=== PATIENT | female | born 1975 | race Caucasian/White ===

== ENCOUNTER 2018-07-01 04:47 | Inpatient (IN) | payer BC ==
[2018-07-01] MEDS ORDERED: Ondansetron HCl/PF 4 MG/2 ML Vial ONE (05:07)
[2018-07-01] MEDS ORDERED: Lorazepam 2 MG/ML VIAL ONE ×3 (05:07→08:07)
[2018-07-01 05:15] LABS: #Lymphocytes 0.8 thou/uL (1.20-3.40); #Monocytes 0.7 thou/uL (0.11-0.59); #Neutrophils 15.2 thou/uL (1.40-6.50); %Eosinophils 0.1 % (0.0-10.0); %Lymphocytes 4.8 % (21.0-51.0); %Monocytes 4.4 % (0.0-10.0); %Neutrophils 90.7 % (42.0-75.0); Hemoglobin 14.1 g/dL (12.0-16.0); Mean Corpuscular HGB CONC 33.7 g/dL (32.0-36.0); Mean Corpuscular Hemoglobin 27.5 pg (27.0-31.0); Mean Corpuscular Volume 81.3 fL (78.0-98.0); Mean Platelet Volume 10.3 fL (7.4-10.4); Platelet Count 125 thou/uL (130-400); RBC Distribution Width 16.4 % (11.5-14.5); Red Blood Cell (RBC) Count 5.15 mill/uL (4.20-5.40); White Blood Cell (WBC) Count 16.8 thou/uL (4.8-10.8)
[2018-07-01 05:21] LABS: BHCG - Serum Negative (NEGATIVE); Pregs Control Background? CLEAR/WHITE (CLR/WHITE); Pregs Control Bar Appear? YES (CONTROL BAR)
[2018-07-01 05:29] LABS: ALT (SGPT) 301 U/L (8-55); AST (SGOT) 730 U/L (5-34); Albumin 4.4 g/dL (3.5-5.0); Alkaline Phosphatase 161 U/L (40-150); Anion Gap 35 mmol/L (10-20); BUN (Urea Nitrogen) 10 mg/dL (7.0-18.7); Bilirubin, Total 2.3 mg/dL (0.2-1.2); Calc. Creatinine Clearance 0 mL/min (70-130); Calcium 8.6 mg/dL (7.8-10.44); Carbon Dioxide 10 mmol/L (22-29); Chloride 76 mmol/L (98-107); Estimated GFR-MDRD 80; Globulin 3.5 g/dL (2.4-3.5); Glucose 153 mg/dL (70-105); Lipase 104 U/L (8-78); Protein, Total 7.9 g/dL (6.0-8.3)
[2018-07-01 05:31] LABS: Potassium 2.7 mmol/L (3.5-5.1); Sodium 118 mmol/L (136-145)
[2018-07-01 05:44] LABS: Base Excess-Venous -7.7 mmol/L (0 (+/- 2.5)); Bicarbonate (HCO3v) 14.3 mmol/L (1.0-85.0); CO2 Tension (PvCO2) 21.6 mmHg (41.0-51.0); Calcium, Ionized 0.86 mmol/L (1.12-1.32); Hemoglobin - Calc 15.1 g/dL (12.0-18.0); Potassium 2.9 mmol/L (3.4-4.7); T. Carbon Dioxide 14.9 mmol/L (1.0-85.0); pH (Venous) 7.427 (7.35-7.45); vO2 Saturation-calc 75.5 % (94-98)
[2018-07-01] MEDS ORDERED: Potassium Chloride 20 MEQ TAB ONE (05:44)
[2018-07-01 05:59] LABS: Acetaminophen Less than 6.0 mcg/mL (10.0-30.0); Alcohol 126 mg/dL (Less than 10); Salicylate Less than 8.0 mg/dL (15.0-30.0); Troponin I 0.014 ng/mL (< 0.028)
[2018-07-01 06:01] LABS: CKMB 34.5 ng/mL (0-6.6)
[2018-07-01] MEDS ORDERED: Lorazepam 2 MG/ML VIAL SLOW IVP PRN ×2 (06:54→08:05)
[2018-07-01] MEDS ORDERED: ZOSYN IVPB PRN (06:55)
[2018-07-01] MEDS ORDERED: Acetaminophen 325 MG TAB PO PRN (06:57)
[2018-07-01 07:33] LABS: Anion Gap 29 mmol/L (10-20); BUN (Urea Nitrogen) 9 mg/dL (7.0-18.7); Calc. Creatinine Clearance 0 mL/min (70-130); Calcium 7.9 mg/dL (7.8-10.44); Carbon Dioxide 11 mmol/L (22-29); Chloride 83 mmol/L (98-107); Estimated GFR-MDRD Greater than 90; Glucose 100 mg/dL (70-105); Potassium 3.3 mmol/L (3.5-5.1); Sodium 120 mmol/L (136-145)
--- NOTE | 2018-07-01 08:07 | ULT ---
SONOGRAM RIGHT UPPER QUADRANT: Date: 07/01/18 HISTORY: Right upper quadrant pain. FINDINGS: Gallbladder is surgically absent. Common duct is 0.7 cm. Liver unremarkable without focal mass or int rahepatic biliary dilatation. No free fluid. IMPRESSION: Status post cholecystectomy. No evidence of biliary obstruction or other acute abnormalities. POS: [facility]
[2018-07-01 08:20] LABS: Amphetamine Not Detected (NotDetected); Barbiturates Screen Not Detected (NotDetected); Benzodiazepine Screen Not Detected (NotDetected); Cocaine Metabolite Screen Not Detected (NotDetected); Medtox Control Line Valid? VALID (VALID); Medtox Reader # READER 4; Methadone Not Detected (NotDetected); Methamphetamine Not Detected (NotDetected); Opiate Screen Not Detected (NotDetected); Oxycodone Screen Not Detected (NotDetected); Phencyclidine (PCP) Not Detected (NotDetected); THC/Cannabinoid Screen Not Detected (NotDetected); Tricyclic Screen Not Detected (NotDetected)
[2018-07-01] MEDS ORDERED: Magnesium 2 GM/50 ML 2 GM in Premix Bag 1 BAG IVPB SCH (08:30)
--- NOTE | 2018-07-01 08:39 | RAD ---
PORTABLE CHEST 1 VIEW: Date: 07/01/18 Time: 0525 hours HISTORY: Nausea and vomiting. FINDINGS: The heart size is normal. The lungs are expanded without focal areas of consolidation, pneumothoraces , or pleural effusions. IMPRESSION: No radiographic evidence of acute cardiopulmonary process. POS: [facility]
[2018-07-01 08:52] LABS: PTT 25.6 SEC (22.9-36.1); Prothrombin Time 13.3 SEC (12.0-14.7)
[2018-07-01 10:44] LABS: Lactic Acid 4.3 mmol/L (0.5-2.2)
--- NOTE | 2018-07-01 13:16 | HP ---
CHIEF COMPLAINT: Vomiting. HISTORY OF PRESENT ILLNESS: The patient is a 43-year-old female with a long history of severe alcoho l addiction and abuse. The patient was last admitted here in 2013 with an episode of severe alcohol withdrawal with seizures. Patient had DTs and was given Ativan. At that time she subsequently becam e unresponsive and required intubation. She was able to be successfully extubated after a couple of days and did well subsequent. At that time, the patient also had a significant cardiomyopathy, initi ally with an EF of 10%-15%, which had improved to 40%-45% at the time of discharge. The patient had positive troponins at that time and had a negative stress test. At the time of that discharge, the p atient was to go to [place] to be with family in order to get away from her detrimental environment. She did that and apparently has been in and out of rehab several times, but continues to relapse wit h her alcoholism. She reports that she had been sober for about 4 months and has been taking Antabus e for several months as well. She subsequently started drinking again on about 4 days ago. Soon the reafter, she developed significant nausea, vomiting, and diarrhea. She continued to drink and deal w ith those symptoms for 3 days. Ultimately, she felt that the vomiting became so severe that she had to come to the emergency department. The patient does admit that she has not been eating or drinking during those 4 days of heavy drinking. She has been drinking liquor as that is generally her prefer red drink. She has fallen several times, but she denies having had any seizures. Currently, patient reports that she feels anxious and shaky and has been feeling that way for the last 3 days as well. PAST MEDICAL HISTORY: Notable for the alcohol abuse. As mentioned above, the patient was previously diagnosed with a cardiomyopathy with EF of 40%-45% at the time of her discharge in 2013. PAST SURGICAL HISTORY: Gastric bypass, cholecystectomy and hysterectomy. FAMILY HISTORY: Notable for a colon cancer in her mother. SOCIAL HISTORY: Patient is not . She lives independently. She does not work. She denies to bacco or drugs, but has a long history of alcohol addiction. REVIEW OF SYSTEMS: Patient has been generally intoxicated for the last 4 days and symptoms are noted as above. She denies specifically any cough or shortness of breath. She has had chills, but no fev er. She denies any other musculoskeletal or integumentary symptoms prior to her episodes starting 4 days ago, she reports she was generally in good overall health with no specific issues noted on the r eview of systems. CURRENT MEDICATIONS: Include Wellbutrin and Antabuse. PHYSICAL EXAMINATION: VITAL SIGNS: Pulse 117, BP 149/87, respirations 22, O2 sat 97% on room air. GENERAL APPEARANCE: Age appropriate female. She is awake, alert, oriented. She is in no distress, although she does appear anxious and shaky. HEENT: PERRL. She has a significant chapping of her lips with some scabbing. Otherwise no OP lesio ns. She does have a dry oral mucosa. She has a small abrasion on the left temporal area which is ve ry superficial and nontender. NECK: Supple and symmetric. Midline trachea. No lymphadenopathy. HEART: Tachycardic without murmurs, gallops or rubs. LUNGS: Clear to auscultation bilaterally with good chest wall expansion and air exchange. ABDOMEN: Mildly diffusely tender with no guarding or rebound. No hepatosplenomegaly noted. EXTREMITIES: Warm and dry without significant edema. LABORATORY DATA AND IMAGING DATA: White count 16.8, hemoglobin 14.1, platelets 125, 91% neutrophils, 4.8% lymphocytes. VBG; pH 7.427, pCO2 21.6, pO2 38. Sodium initially was 118, subsequent 119 and t hird was 120. Initial potassium 2.7, repeat 3.3, chloride was 82, initial chloride 76, CO2 10, anion gap 35, BUN 10, creatinine 0.78, lactic acid 11.4, glucose 153, calcium 8.6, total bilirubin 2.3, T 730, ALT 301, alkaline phosphatase 161, CK 1898, CK-MB 35.4, albumin 4.4, lipase 104. te st negative. Salicylate negative. Acetaminophen negative. Plasma alcohol 126. Chest x-ray appears clear. Abdominal ultrasound shows status post cholecystectomy, but otherwise normal. Most recent r epeat BMP; sodium 120, potassium 3.3, chloride 83, anion gap is 29, BUN 9, creatinine 0.64, glucose 1 00, calcium 7.9, magnesium 1.4. EKG shows sinus tachycardia. ASSESSMENT AND PLAN: 1. Intractable nausea and vomiting secondary to Antabuse and alcohol consumption. The patient will be treated symptomatically with p.r.n. and obviously the cessation of the alcohol. 2. Leukocytosis subtle left shift. The patient may simply be having some demargination from stress reaction; however, she has a significant acidosis and has been vomiting. She has received a dose of Zosyn for aspiration coverage. We will continue that and follow clinically. 3. Severe hyponatremia, likely secondary to the alcohol abuse with the vomiting, diarrhea, and lack of consumption of food or water. She has moved from 118-120. This patient is certainly at risk for CPM and aggressive correction of her sodium must be avoided. Consulted Nephrology for assistance in dealing with this difficult situation. 4. Hypokalemia, again secondary to nausea, vomiting, diarrhea, and alcohol consumption with lack of nutritional intake. She has been repeated to 3.33. We will continue to closely monitor. 5. Severe lactic acid gap acidosis secondary to the alcohol consumption and likely diarrhea and dehy dration to some degree. Should improve with the cessation of the alcohol again complicated by a conc cheri for rapidly correcting her sodium with aggressive fluid resuscitation. We will seek help from Ne phrology in managing her fluids. 6. Alcoholic hepatitis with significant elevations in her liver enzymes. We will continue to monito r with the cessation of alcohol. 7. Rhabdomyolysis. The patient has had several falls as well as significant vomiting. We will cont inue to trend. 8. Acute alcohol intoxication. We will continue to monitor for signs of withdrawal. The patient re ports she had been sober for 4 months prior to 4 days of binge drinking. Certainly at risk for withd sary, although probably a bit less likely given her 4 months of sobriety she reported. 9. History of cardiomyopathy. The patient appears to be stable from a cardiac standpoint presently. DISPOSITION: The patient will be placed in the Intermediate Care Unit for concerns of sepsis, althou gh that is not clear that she has any specific source of infection and her other signs of sepsis can be attributable to other issues. She is at significant risk for alcohol withdrawal. She does have a history of withdrawal seizures and she has a history of respiratory failure following a dosing of At ellen back in 2013.
[2018-07-01] MEDS: Thiamine HCl 200 MG/2 ML VIAL SLOW IVP SCH (13:22)
[2018-07-01] MEDS: Piperacillin/Tazobactam 3.375 GM in Sodium Chloride 0.9% 100 ML IVPB SCH ×3 (13:23→20:09)
[2018-07-01] MEDS: Potassium Chloride 20 MEQ in Premix Bag 1 BAG IVPB SCH ×2 (13:23→13:24)
[2018-07-01] MEDS: Folic Acid/Vit B Comp W-C PO SCH (13:24)
[2018-07-01] MEDS: Famotidine/PF 20 mg/2ml Vial SLOW IVP SCH ×2 (13:24→20:09)
[2018-07-01 13:42] LABS: Anion Gap 22 mmol/L (10-20); BUN (Urea Nitrogen) 9 mg/dL (7.0-18.7); Calc. Creatinine Clearance 94 mL/min (70-130); Carbon Dioxide 16 mmol/L (22-29); Chloride 89 mmol/L (98-107); Estimated GFR-MDRD 81; Glucose 122 mg/dL (70-105); Potassium 3.3 mmol/L (3.5-5.1); Sodium 124 mmol/L (136-145)
[2018-07-01 19:22] LABS: Anion Gap 22 mmol/L (10-20); BUN (Urea Nitrogen) 7 mg/dL (7.0-18.7); Calc. Creatinine Clearance 98 mL/min (70-130); Calcium 8.1 mg/dL (7.8-10.44); Carbon Dioxide 16 mmol/L (22-29); Chloride 89 mmol/L (98-107); Estimated GFR-MDRD 85; Glucose 102 mg/dL (70-105); Potassium 3.4 mmol/L (3.5-5.1); Sodium 124 mmol/L (136-145)
[2018-07-01] MEDS: Ondansetron HCl/PF 4 MG/2 ML Vial IVP PRN (20:09)
[2018-07-01] MEDS ORDERED: traZODone HCl 50 MG TAB PO SCH (21:15)
--- NOTE | 2018-07-02 00:37 | CON ---
DATE OF CONSULTATION: 07/01/2018 CONSULTING PHYSICIAN: Dr. Reynoso from ER. REASON FOR CONSULTATION: Hyponatremia. REASON FOR ADMISSION: Vomiting. HISTORY OF PRESENT ILLNESS: This is a 43-year-old female with history of alcohol abuse, cardiomyopat hy, and obesity in the past and seizure, weaned from alcohol withdrawal, came to the hospital with se markus vomiting and was found to have a sodium of 118. Nephrology is consulted. The patient was alrea dy given 2 liters of fluid and some IV fluids. Patient was feeling slightly better. Patient also wilcox s alcohol abuse. No chest pain, palpitation, no fever or chills. No diarrhea. PAST MEDICAL HISTORY: Positive for alcohol abuse, cardiomyopathy, obesity, and seizure from alcohol withdrawal. PAST SURGICAL HISTORY: Gastric bypass, cholecystectomy, hysterectomy. HOME MEDICATIONS: Wellbutrin and Antabuse. SOCIAL HISTORY: No smoking. No smoking, no illicit drug abuse. Alcohol addiction present. FAMILY HISTORY: Positive for colon cancer. REVIEW OF SYSTEMS: The following complete review of systems was negative, unless otherwise mentioned in the HPI or below: Constitutional: Weight loss or gain, ability to conduct usual activities. Sk in: Rash, itching. Eyes: Double vision, pain. ENT/Mouth: Nose bleeding, neck stiffness, pain, te nderness. Cardiovascular: Palpitations, dyspnea on exertion, orthopnea. Respiratory: Shortness of breath, wheezing, cough, hemoptysis, fever or night sweats. Gastrointestinal: Poor appetite, abdom inal pain, heartburn, nausea, vomiting, constipation, or diarrhea. Genitourinary: Urgency, frequenc y, dysuria, nocturia. Musculoskeletal: Pain, swelling. Neurologic/Psychiatric: Anxiety, depressio n. Allergy/Immunologic: Skin rash, bleeding tendency. PHYSICAL EXAMINATION: GENERAL: This is thin-built female, in no apparent distress. VITAL SIGNS: Temperature 99.0, pulse 106, respiratory rate 18, blood pressure 133/75. HEENT: Atraumatic, normocephalic. Oral mucosa is moist. NECK: Supple, no masses. CARDIOVASCULAR: S1, S2 heard. Rate and rhythm regular. RESPIRATORY: Clear. GASTROINTESTINAL: Abdomen is soft. MUSCULOSKELETAL: No edema. DERMATOLOGIC: No rash. NEUROLOGIC: Alert and awake. PSYCHIATRIC: Mood and affect normal. LABORATORY DATA: Sodium was 118 and now is 124. Potassium 3.3, bicarbonate 16, BUN is 9. ASSESSMENT AND PLAN: 1. Hyponatremia, severe, better to 124. We will monitor sodium. Avoid correction more than i n 24 hours. 2. Severe nausea and vomiting. 3. Metabolic acidosis, hypokalemia, replaced. 4. Lactic acidosis. 5. Continue hydration if tolerated and monitor sodium closely and we will follow. Thank you for the consult.
--- NOTE | 2018-07-02 01:37 | CON ---
DATE OF CONSULTATION: 07/01/2018 Roxanne Forde is an unfortunate 43-year-old female, who very readily admits that she has a problem with drinking vodka. She was not a social drinker by her history until she was . She has a history of alcohol withdrawal in the past and she has never been successful at remaining abstinent. She came to the hospital, because she wants to quit drinking she says. She has gone through AA and says this did not help much. She has been in rehab several times. When she was younger, she says she did drink at all and rarely socially drank, says this was all triggered by divorce. 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 PAST HISTORY: She has had a gastric bypass, cholecystectomy, hysterectomy in the past. FAMILY HISTORY: Positive for cancer. Negative for lung disease. SOCIAL HISTORY: She is not working. She does not smoke. She is drinking a half bottle of vodka a day admitted; she drinks mainly in the evening she says; denies drinking in the mornings. REVIEW OF SYSTEMS: 10 point review of system completed, otherwise negative. She has been on Antabuse and Wellbutrin. She has been vomiting, because she has been drinking with Antabuse. PHYSICAL EXAMINATION: VITAL SIGNS: She is afebrile, heart rate is 112, respiratory rate is 25, oximetry is 100 on room air, blood pressure 139/76. GENERAL: She is alert and oriented x3. HEENT: Pupils are equal. Sclerae is icteric. NECK: Supple, no lymphadenopathy. LUNGS: Clear. HEART: Regular rhythm, no S3. ABDOMEN: Soft and nontender. EXTREMITIES: Without clubbing, cyanosis, or edema. LABORATORY DATA: Sodium 120, potassium 3.3, chloride 83, bicarbonate 11, BUN 9 , creatinine 0.64. Anion gap 16. Magnesium level is 1.4. CPK is 1980. White count 16.8, hemoglobin 14.1, MCV surprisingly 81. Given her heavy alcohol use, venous gas in the ER is 7.42, CO2 of 21, pO2 of 38. IMPRESSION: 1. Alcoholism. 2. Possible impending alcohol withdrawal. 3. Hyponatremia, most likely beer drinkers potomania. 4. Electrolyte imbalance secondary to poor nutritional intake and alcoholism. I agree with her hospitalization. She will need aggressive hydration. She needs electrolyte replacement. She needs to be off the Antabuse. She needs antiemetics; trying to avoid Phenergan, because of its sedating effects. Obviously, she has been through this many times before, and based on my interaction with her, she clearly understands the difficulties I had. Unfortunately, she has been unable to be abstinent. I will be happy to follow with the other physicians caring for her. This is a 70-minute consult, with greater than 50% of the time spent in the unit coordinating care. CODIE
[2018-07-02] MEDS: Sodium Chloride 0.9% 1,000 ML IV SCH ×2 (02:33→18:36)
[2018-07-02] MEDS: Ondansetron HCl/PF 4 MG/2 ML Vial IVP PRN ×2 (02:33→12:53)
[2018-07-02] MEDS: Piperacillin/Tazobactam 3.375 GM in Sodium Chloride 0.9% 100 ML IVPB SCH ×4 (02:33→21:01)
[2018-07-02 04:19] LABS: ALT (SGPT) 210 U/L (8-55); AST (SGOT) 250 U/L (5-34); Albumin 3.7 g/dL (3.5-5.0); Alkaline Phosphatase 132 U/L (40-150); Anion Gap 17 mmol/L (10-20); BUN (Urea Nitrogen) 5 mg/dL (7.0-18.7); Bilirubin, Direct 0.6 mg/dL (0.1-0.3); Bilirubin, Total 1.3 mg/dL (0.2-1.2); Calc. Creatinine Clearance 102 mL/min (70-130); Calcium 8.5 mg/dL (7.8-10.44); Carbon Dioxide 22 mmol/L (22-29); Chloride 90 mmol/L (98-107); Estimated GFR-MDRD 89; Glucose 110 mg/dL (70-105); Potassium 3.1 mmol/L (3.5-5.1); Protein, Total 6.6 g/dL (6.0-8.3); Sodium 126 mmol/L (136-145)
[2018-07-02] MEDS ORDERED: Sodium Chloride 0.9% 1,000 ML IV SCH (07:30)
[2018-07-02] MEDS: Famotidine/PF 20 mg/2ml Vial SLOW IVP SCH ×2 (09:02→21:02)
[2018-07-02] MEDS: Folic Acid/Vit B Comp W-C PO SCH (09:04)
[2018-07-02] MEDS: Thiamine HCl 200 MG/2 ML VIAL SLOW IVP SCH (09:59)
--- NOTE | 2018-07-02 10:55 | PRG ---
DATE OF SERVICE: 07/02/2018 Roxanne Forde has no complaints. PHYSICAL EXAMINATION: VITAL SIGNS: Temperature 99.5 at midnight. Heart rate 96, respiratory rate 17, oximetry is 100% on room air, blood pressure 91/47. Sodium is 126 today. Potassium 3.1, chloride 90, bicarbonate 22, BUN 5, creatinine 0.7. Physical exam is unchanged. IMPRESSION: 1. Heavy alcohol use. 2. Intravascular volume depletion secondary to drinking alcohol while taking Antabuse. 3. Elevated liver enzymes secondary to likely fatty infiltration of her liver. PLAN: Continue hydration and support. There are no clinical signs of alcohol withdrawal yet. Her h yponatremia should gradually improve with protein nutrition.
[2018-07-02] MEDS ORDERED: Potassium Chloride 20 MEQ TAB PO SCH (12:15)
[2018-07-02 12:19] LABS: Anion Gap 15 mmol/L (10-20); BUN (Urea Nitrogen) 6 mg/dL (7.0-18.7); Calc. Creatinine Clearance 106 mL/min (70-130); Calcium 8.5 mg/dL (7.8-10.44); Carbon Dioxide 24 mmol/L (22-29); Chloride 92 mmol/L (98-107); Estimated GFR-MDRD Greater than 90; Glucose 99 mg/dL (70-105); Sodium 128 mmol/L (136-145)
--- NOTE | 2018-07-02 14:36 | PDOC.PN ---
- Subjective Encounter Start Date: 07/02/18 Encounter Start Time: 14:00 Feeling better overall. Still has some mile dry heaves, but no vomiting. Not tolerating much po yet. - Objective Vital Signs & Weight: Vital Signs (12 hours) Temp Pulse Resp BP Pulse Ox 07/02/18 12:00 98.1 F 84 16 118/76 94 L 07/02/18 11:00 96 07/02/18 10:25 98.4 F 93 16 125/77 96 07/02/18 07:25 99.0 F 96 17 91/47 L 100 07/02/18 04:00 99.4 F 95 19 113/68 100 Weight Admit Weight 143 lb Weight 142 lb 4.8 oz I&O: 07/01/18 07/02/18 07/03/18 06:59 06:59 06:59 Intake Total 780 Output Total 650 Balance 130 Result Diagrams: 07/01/18 05:00 07/02/18 11:46 Phys Exam - Physical Examination Constitutional: NAD Respiratory: no wheezing, no rales, no rhonchi, clear to auscultation bilateral Cardiovascular: RRR, no significant murmur Gastrointestinal: soft, non-tender, no distention, positive bowel sounds Musculoskeletal: no edema Slightly groggy. Dx/Plan (1) Nausea & vomiting Code(s): R11.2 - NAUSEA WITH VOMITING, UNSPECIFIED Status: Acute Comment: Secondary to drinking alcohol while on Antabuse. Improving. Continue IVF and symptomatic treatment. (2) Alcohol abuse Code(s): F10.10 - ALCOHOL ABUSE, UNCOMPLICATED Status: Acute Comment: Relapse of alcoholism. (3) Hyponatremia Code(s): E87.1 - HYPO-OSMOLALITY AND HYPONATREMIA Status: Acute Comment: Slowly improving as preferred. Nephrology following. (4) Hypokalemia Code(s): E87.6 - HYPOKALEMIA Status: Acute Comment: Secondary to N/V. Improved. (5) Alcoholic hepatitis Code(s): K70.10 - ALCOHOLIC HEPATITIS WITHOUT ASCITES Status: Acute Comment : Numbers improved. (6) Rhabdomyolysis Code(s): M62.82 - RHABDOMYOLYSIS Status: Acute Comment: Mild, stable. Secondary to falls. (7) Lactic acidosis Code(s): E87.2 - ACIDOSIS Status: Acute Comment: Improved with hydration. (8) Leukocytosis Code(s): D72.829 - ELEVATED WHITE BLOOD CELL COUNT, UNSPECIFIED Status: Acute Comment: Likely demargination. Recheck in am. On Zosyn to cover aspiration , but no evidence of that at this time. - Plan * .
[2018-07-02 16:11] LABS: Potassium 3.3 mmol/L (3.5-5.1)
--- NOTE | 2018-07-02 17:26 | PRG ---
DATE OF SERVICE: 07/02/2018 SUBJECTIVE: Patient was seen and examined at bedside and overnight events noted. Patient denies any shortness of breath or chest pain or palpitation. No history of nausea or vomiting or diarrhea or f ever or chills or cramps. OBJECTIVE: GENERAL: This is a well-built female in no apparent distress. VITAL SIGNS: Temperature 98.5, pulse 91, respiratory rate 18, blood pressure 123/71. HEENT: Atraumatic, normocephalic. Oral mucosa is moist. NECK: Supple. CARDIOVASCULAR: S1, S2 heard. Rate and rhythm regular. RESPIRATORY: Clear to auscultation. GASTROINTESTINAL: Abdomen is soft. MUSCULOSKELETAL: No tenderness. No edema. DERMATOLOGIC: No skin rash. NEUROLOGIC: Alert and awake and oriented x3. No focal neurologic deficits. Moving all the extremiti es. PSYCHIATRIC: Mood and affect normal. LABORATORY DATA: Potassium is 3.3, BUN 6, creatinine 0.6, sodium is 129. ASSESSMENT AND PLAN: 1. Hyponatremia, getting better adequately and we will continue on intravenous fluids. 2. Hypokalemia, replace and monitor. 3. Severe nausea and vomiting. 4. Metabolic acidosis, lactic acidosis. 5. Will continue hydration cautiously and monitor sodium.
[2018-07-02 18:51] LABS: Bilirubin Small (Negative); Blood, Urine Negative (Negative); Clarity CLEAR (Clear); Glucose, Urine (Dipstick) Negative (Negative); Leukocyte Negative (Negative); Nitrite Negative (Negative); Protein, Urine (Dipstick) Negative (Neg-Trace); Specific Gravity, Urine 1.018 (1.002-1.036)
[2018-07-02 19:02] LABS: Potassium, Urine 37.5 mmol/L
[2018-07-02] MEDS ORDERED: traZODone HCl 50 MG TAB PO SCH (21:00)
[2018-07-03] MEDS: Sodium Chloride 0.9% 1,000 ML IV SCH ×2 (00:06→08:57)
[2018-07-03] MEDS: Ondansetron HCl/PF 4 MG/2 ML Vial IVP PRN ×3 (02:07→16:19)
[2018-07-03] MEDS: Piperacillin/Tazobactam 3.375 GM in Sodium Chloride 0.9% 100 ML IVPB SCH ×4 (02:08→20:21)
[2018-07-03] MEDS ORDERED: Meclizine HCl 25 MG TAB PO SCH (02:45)
[2018-07-03 05:25] LABS: ALT (SGPT) 149 U/L (8-55); AST (SGOT) 106 U/L (5-34); Albumin 3.2 g/dL (3.5-5.0); Alkaline Phosphatase 100 U/L (40-150); Anion Gap 13 mmol/L (10-20); BUN (Urea Nitrogen) 4 mg/dL (7.0-18.7); Bilirubin, Direct 0.4 mg/dL (0.1-0.3); Bilirubin, Total 0.8 mg/dL (0.2-1.2); Calc. Creatinine Clearance 108 mL/min (70-130); Calcium 8.3 mg/dL (7.8-10.44); Carbon Dioxide 25 mmol/L (22-29); Chloride 95 mmol/L (98-107); Estimated GFR-MDRD Greater than 90; Glucose 127 mg/dL (70-105); Protein, Total 5.8 g/dL (6.0-8.3); Sodium 130 mmol/L (136-145)
[2018-07-03 06:04] LABS: #Eosinphils 0.1 thou/uL (0.0-0.7); #Lymphocytes 1.3 thou/uL (1.20-3.40); #Monocytes 0.5 thou/uL (0.11-0.59); %Basophils 0.2 % (0.0-1.0); %Eosinophils 1.8 % (0.0-10.0); %Lymphocytes 19.4 % (21.0-51.0); %Monocytes 6.8 % (0.0-10.0); %Neutrophils 71.8 % (42.0-75.0); Hemoglobin 11.3 g/dL (12.0-16.0); Mean Corpuscular HGB CONC 32.6 g/dL (32.0-36.0); Mean Corpuscular Hemoglobin 27.6 pg (27.0-31.0); Mean Corpuscular Volume 84.5 fL (78.0-98.0); Mean Platelet Volume 10.7 fL (7.4-10.4); Platelet Count 60 thou/uL (130-400); RBC Distribution Width 16.2 % (11.5-14.5); White Blood Cell (WBC) Count 6.9 thou/uL (4.8-10.8)
[2018-07-03] MEDS ORDERED: Potassium Chloride 20 MEQ TAB PO SCH (08:15)
[2018-07-03] MEDS: Folic Acid/Vit B Comp W-C PO SCH (08:54)
[2018-07-03] MEDS: Famotidine/PF 20 mg/2ml Vial SLOW IVP SCH ×2 (08:57→20:21)
[2018-07-03] MEDS: Thiamine HCl 200 MG/2 ML VIAL SLOW IVP SCH (10:25)
--- NOTE | 2018-07-03 10:35 | PRG ---
DATE OF SERVICE: 07/03/2018 SUBJECTIVE: Patient was seen and examined at bedside and overnight events noted. Patient denies any shortness of breath or chest pain or palpitation. No history of nausea or vomiting or diarrhea or f ever or chills or cramps. OBJECTIVE: GENERAL: This is a well-built female in no apparent distress. VITAL SIGNS: Temperature 98.8, pulse 96, respiratory rate 18, blood pressure 117/76. HEENT: Atraumatic, normocephalic. Oral mucosa is moist. NECK: Supple. CARDIOVASCULAR: S1, S2 heard. Rate and rhythm regular. RESPIRATORY: Clear to auscultation. GASTROINTESTINAL: Abdomen is soft. MUSCULOSKELETAL: No tenderness, no edema. DERMATOLOGIC: No skin rash. NEUROLOGIC: Alert and awake and oriented x3. No focal neurologic deficits. Moving all the extremit ies. PSYCHIATRIC: Mood and affect normal. LABORATORY DATA: Sodium is 130, potassium 3.0. ASSESSMENT AND PLAN: 1. Hyponatremia, stable and getting better. Continue IV fluids. 2. Hypokalemia, replace. 3. Severe nausea and vomiting. 4. Metabolic acidosis. Continue IV fluids 1 more day. The patient is still nauseated.
--- NOTE | 2018-07-03 12:47 | PDOC.PN ---
- Subjective Encounter Start Date: 07/03/18 Encounter Start Time: 10:40 Doing better. Still has some nausea, but better. Trying to take po's. Has ambulated a little. Still a bit lightheaded. - Objective Vital Signs & Weight: Vital Signs (12 hours) Temp Pulse Resp BP BP Pulse Ox 07/03/18 12:10 98.6 F 98 20 119/73 95 07/03/18 08:00 117/76 95 07/03/18 07:58 98.8 F 96 19 117/76 95 07/03/18 04:00 99.3 F 96 16 112/70 112/70 95 Weight Admit Weight 143 lb Weight 143 lb I&O: 07/02/18 07/03/18 07/04/18 06:59 06:59 06:59 Intake Total 780 2520 Output Total 650 Balance 130 2520 Result Diagrams: 07/03/18 04:08 07/03/18 04:08 Additional Labs: Accuchecks 07/03/18 01:55 POC Glucose 181 H Phys Exam - Physical Examination Constitutional: NAD Respiratory: no wheezing, no rales, no rhonchi, clear to auscultation bilateral Cardiovascular: RRR, no significant murmur, no rub Gastrointestinal: soft, non-tender, no distention, positive bowel sounds Musculoskeletal: no edema Bruising left shoulder. Psychiatric: normal affect, A&O x 3 Deviation from normal: Small abrasion left temporal area. Dx/Plan (1) Nausea & vomiting Code(s): R11.2 - NAUSEA WITH VOMITING, UNSPECIFIED Status: Acute Comment: Secondary to drinking alcohol while on Antabuse. Improving. Continue IVF and symptomatic treatment. Advanced diet. (2) Alcohol abuse Code(s): F10.10 - ALCOHOL ABUSE, UNCOMPLICATED Status: Acute Comment: Relapse of alcoholism. She has been through rehab several times. Does not feel like that will be necessary this time. (3) Hyponatremia Code(s): E87.1 - HYPO-OSMOLALITY AND HYPONATREMIA Status: Acute Comment: Slowly improving as preferred. Nephrology following. (4) Hypokalemia Code(s): E87.6 - HYPOKALEMIA Status: Acute Comment: Secondary to N/V. Improved. (5) Alcoholic hepatitis Code(s): K70.10 - ALCOHOLIC HEPATITIS WITHOUT ASCITES Status: Acute Comment : Numbers improved. (6) Rhabdomyolysis Code(s): M62.82 - RHABDOMYOLYSIS Status: Acute Comment: Mild, stable. Secondary to falls. (7) Lactic acidosis Code(s): E87.2 - ACIDOSIS Status: Acute Comment: Improved with hydration. (8) Leukocytosis Code(s): D72.829 - ELEVATED WHITE BLOOD CELL COUNT, UNSPECIFIED Status: Resolved - Plan * .
[2018-07-03] MEDS ORDERED: Diphenoxylate HCl/Atropine Tablet PO PRN (14:52)
--- NOTE | 2018-07-03 17:37 | EKG ---
Test Reason : Blood Pressure : / mmHG Vent. Rate : 116 BPM Atrial Rate : 116 BPM P-R Int : 124 ms QRS Dur : 076 ms QT Int : 348 ms P-R-T Axes : 060 000 029 degrees QTc Int : 483 ms Sinus tachycardia Possible Inferior infarct , age undetermined Abnormal ECG Confirmed by DOMITILA RENDON, LIGIA ([id number]), society editor KALPESH ANTONIO ([id number]) on 07/03/2018 5:36:57 PM Referred By: Confirmed By:LIGIA RAMESH MD
[2018-07-03] MEDS: traZODone HCl 50 MG TAB PO SCH (20:21)
[2018-07-04] MEDS: Piperacillin/Tazobactam 3.375 GM in Sodium Chloride 0.9% 100 ML IVPB SCH ×2 (02:40→08:19)
[2018-07-04] MEDS: FLUoxetine HCl 10 MG CAP PO SCH (08:19)
[2018-07-04] MEDS: Folic Acid/Vit B Comp W-C PO SCH (08:19)
[2018-07-04] MEDS: Famotidine/PF 20 mg/2ml Vial SLOW IVP SCH ×2 (08:19→20:10)
[2018-07-04] MEDS: Ondansetron HCl/PF 4 MG/2 ML Vial IVP PRN (08:22)
[2018-07-04] MEDS: Sodium Chloride 0.9% 1,000 ML IV SCH (08:28)
[2018-07-04] MEDS: Lorazepam 1 MG TAB PO PRN (08:31)
[2018-07-04 08:41] LABS: Anion Gap 10 mmol/L (10-20); BUN (Urea Nitrogen) 7 mg/dL (7.0-18.7); Calc. Creatinine Clearance 109 mL/min (70-130); Calcium 7.9 mg/dL (7.8-10.44); Carbon Dioxide 26 mmol/L (22-29); Chloride 101 mmol/L (98-107); Estimated GFR-MDRD Greater than 90; Glucose 88 mg/dL (70-105); Sodium 134 mmol/L (136-145)
[2018-07-04 08:42] LABS: Hemoglobin 11.1 g/dL (12.0-16.0); Mean Corpuscular Hemoglobin 27.4 pg (27.0-31.0); Mean Corpuscular Volume 85.6 fL (78.0-98.0); Mean Platelet Volume 10.1 fL (7.4-10.4); Platelet Count 70 thou/uL (130-400); RBC Distribution Width 16.7 % (11.5-14.5); Red Blood Cell (RBC) Count 4.03 mill/uL (4.20-5.40); White Blood Cell (WBC) Count 6.6 thou/uL (4.8-10.8)
[2018-07-04 09:30] LABS: #Eosinphils 0.3 thou/uL (0.0-0.7); #Monocytes 0.6 thou/uL (0.11-0.59); #Neutrophils 3.7 thou/uL (1.40-6.50); %Basophils 0.3 % (0.0-1.0); %Eosinophils 4.3 % (0.0-10.0); %Lymphocytes 30.4 % (21.0-51.0); %Monocytes 8.9 % (0.0-10.0); %Neutrophils 56.1 % (42.0-75.0); MDiff Complete? YES; Microcytosis SLIGHT = 6-15 cells (100X) (0-5/hpf); PLT Morphology Comment Appears Decreased
[2018-07-04] MEDS: Thiamine HCl 200 MG/2 ML VIAL SLOW IVP SCH (10:16)
[2018-07-04] MEDS: Potassium Chloride 20 MEQ in Premix Bag 1 BAG IVPB SCH ×2 (11:07→15:15)
--- NOTE | 2018-07-04 13:26 | PDOC.PN ---
- Subjective Encounter Start Date: 07/04/18 Encounter Start Time: 08:30 Still has some nausea. Trying to eat, but not much staying down. Says she is not sleeping either. Had her home dose of Trazadone 150 mg last night with no sleep. Continues to have some diarrhea. - Objective Vital Signs & Weight: Vital Signs (12 hours) Temp Pulse Resp BP Pulse Ox 07/04/18 11:53 98.3 F 83 20 109/72 97 07/04/18 08:06 98.7 F 91 19 122/88 100 07/04/18 08:00 100 Weight Admit Weight 143 lb Weight 143 lb I&O: 07/03/18 07/04/18 07/05/18 06:59 06:59 06:59 Intake Total 2520 2180 Output Total 200 Balance 2520 1979 Result Diagrams: 07/04/18 07:59 07/04/18 07:59 Phys Exam - Physical Examination Constitutional: NAD Respiratory: no wheezing, no rales, no rhonchi, clear to auscultation bilateral Cardiovascular: RRR, no significant murmur, no rub Gastrointestinal: soft, non-tender, no distention, positive bowel sounds Musculoskeletal: no edema Psychiatric: normal affect, A&O x 3 Dx/Plan (1) Nausea & vomiting Code(s): R11.2 - NAUSEA WITH VOMITING, UNSPECIFIED Status: Acute Comment: Secondary to drinking alcohol while on Antabuse (Disulfiram effect). Still has some nausea and diarrhea. Continue IVF and symptomatic treatment. Advanced diet as tolerated. Effects of Disulfiram can last up to 14 days. (2) Alcohol abuse Code(s): F10.10 - ALCOHOL ABUSE, UNCOMPLICATED Status: Acute Comment: Relapse of alcoholism. She has been through rehab several times. Does not feel like that will be necessary this time. Not much in the way of withdrawal symptoms. Will cover with low dose Chlordiazepoxide tid to see if that will help with symptoms. (3) Hyponatremia Code(s): E87.1 - HYPO-OSMOLALITY AND HYPONATREMIA Status: Acute Comment: Slowly improving as preferred. Nephrology following. Near normal. (4) Hypokalemia Code(s): E87.6 - HYPOKALEMIA Status: Acute Comment: Secondary to N/V. Improved. (5) Alcoholic hepatitis Code(s): K70.10 - ALCOHOLIC HEPATITIS WITHOUT ASCITES Status: Acute Comment : Numbers improved. (6) Rhabdomyolysis Code(s): M62.82 - RHABDOMYOLYSIS Status: Acute Comment: Mild, stable. Secondary to falls. (7) Lactic acidosis Code(s): E87.2 - ACIDOSIS Status: Acute Comment: Improved with hydration. (8) Leukocytosis Code(s): D72.829 - ELEVATED WHITE BLOOD CELL COUNT, UNSPECIFIED Status: Resolved - Plan * Discharge goal is adequate po intake and normalization of electrolytes.
--- NOTE | 2018-07-04 13:41 | PRG ---
DATE OF SERVICE: 07/04/2018. SUBJECTIVE: Patient was seen and examined at bedside and overnight events noted. Patient denies any shortness of breath or chest pain or palpitation. No history of nausea or vomiting or diarrhea or f ever or chills or cramps. OBJECTIVE: GENERAL: This is a thin built female in no apparent distress. VITAL SIGNS: Temperature 98.3, pulse 83, respiratory rate 20, blood pressure 109/72. HEENT: Atraumatic, normocephalic. Oral mucosa is moist. NECK: Supple. CARDIOVASCULAR: S1, S2 heard. Rate and rhythm regular. RESPIRATORY: Clear to auscultation. GASTROINTESTINAL: Abdomen is soft. MUSCULOSKELETAL: No tenderness, no edema. DERMATOLOGIC: No skin rash. NEUROLOGIC: Alert and awake and oriented x3. No focal neurologic deficits. Moving all the extremit ies. PSYCHIATRIC: Mood and affect normal. LABORATORY DATA: Sodium is 134, potassium is 3.0, BUN 7, creatinine 0.67. ASSESSMENT AND PLAN: 1. Hyponatremia, much better. 2. Hypokalemia. Continue supplementation. Monitor magnesium level. 3. Severe nausea and vomiting. 4. Metabolic acidosis, stable. Labs are stable. We will follow.
[2018-07-04] MEDS: Potassium Chloride 20 MEQ TAB PO SCH ×2 (13:55→18:21)
[2018-07-04] MEDS: traZODone HCl 50 MG TAB PO SCH (20:12)
[2018-07-05 05:44] LABS: Anion Gap 13 mmol/L (10-20); BUN (Urea Nitrogen) 6 mg/dL (7.0-18.7); Calc. Creatinine Clearance 110 mL/min (70-130); Calcium 8.2 mg/dL (7.8-10.44); Carbon Dioxide 22 mmol/L (22-29); Chloride 104 mmol/L (98-107); Estimated GFR-MDRD Greater than 90; Glucose 177 mg/dL (70-105); Magnesium 1.9 mg/dL (1.6-2.6); Potassium 3.9 mmol/L (3.5-5.1); Sodium 135 mmol/L (136-145)
[2018-07-05] MEDS: Famotidine/PF 20 mg/2ml Vial SLOW IVP SCH ×2 (09:17→21:46)
[2018-07-05] MEDS: FLUoxetine HCl 10 MG CAP PO SCH (09:17)
[2018-07-05] MEDS: Folic Acid/Vit B Comp W-C PO SCH (09:17)
[2018-07-05] MEDS: Thiamine HCl 200 MG/2 ML VIAL SLOW IVP SCH (09:18)
[2018-07-05 15:59] VITALS: BMI 27.0
[2018-07-05] MEDS: Ondansetron HCl/PF 4 MG/2 ML Vial IVP PRN (16:56)
[2018-07-05] MEDS: Lorazepam 1 MG TAB PO PRN (16:56)
--- NOTE | 2018-07-05 18:46 | PDOC.PN ---
- Subjective Encounter Start Date: 07/05/18 Encounter Start Time: 10:20 Pt seen for followup re: nausea and vomiting. Still nauseous. No fevers or chills. Feels better. - Objective MAR Reviewed: Yes Vital Signs & Weight: Vital Signs (12 hours) Temp Pulse Resp BP Pulse Ox 07/05/18 16:21 98.5 F 85 20 113/77 100 07/05/18 11:42 98.2 F 90 18 121/77 100 07/05/18 08:00 97 07/05/18 07:27 98.4 F 86 20 125/84 97 Weight Admit Weight 143 lb Weight 143 lb I&O: 07/04/18 07/05/18 07/06/18 06:59 06:59 06:59 Intake Total 2180 1500 1820 Output Total 200 Balance 1980 1500 1820 Result Diagrams: 07/04/18 07:59 07/05/18 05:01 Additional Labs: labs reviewed by me Phys Exam - Physical Examination Constitutional: NAD HEENT: moist MMs Neck: supple Respiratory: clear to auscultation bilateral Cardiovascular: RRR Gastrointestinal: soft Neurological: moves all 4 limbs Psychiatric: normal affect Dx/Plan (1) Nausea & vomiting Code(s): R11.2 - NAUSEA WITH VOMITING, UNSPECIFIED Status: Acute Comment: Continue symptomatic treatment. Advance diet as tolerated. (2) Alcoholic hepatitis Code(s): K70.10 - ALCOHOLIC HEPATITIS WITHOUT ASCITES Status: Acute Comment : Improving (3) Hyponatremia Code(s): E87.1 - HYPO-OSMOLALITY AND HYPONATREMIA Status: Acute Comment: almost resolved, sodium 135 today (4) Hypokalemia Code(s): E87.6 - HYPOKALEMIA Status: Resolved - Plan * . Review of Systems - Review of Systems Gastrointestinal: Nausea. negative: Vomiting, Abdominal Pain, Diarrhea, Constipation, Melena, Hematochezia Genitourinary: negative: Dysuria, Frequency, Incontinence, Hematuria, Retention - Medications/Allergies Allergies/Adverse Reactions: Allergies Allergy/AdvReac Type Severity Reaction Status Date / Time No Known Allergies Allergy Verified 06/25/14 04:28 Medications: Current Medications Acetaminophen (Tylenol) 650 mg PO Q4H PRN PRN Reason: Headache/Fever/Mild Pain (1-3) Chlordiazepoxide HCl (Librium) 10 mg PO TID [facility] Last Admin: 07/05/18 15:27 Dose: 10 mg Diphenoxylate HCl/Atropine (Lomotil) 1 tab PO BID PRN PRN Reason: Diarrhea/Loose Stools Last Admin: 07/03/18 15:00 Dose: 1 tab Famotidine (Pepcid) 20 mg SLOW IVP Q12HR [facility] Last Admin: 07/05/18 09:17 Dose: 20 mg Fluoxetine HCl (Prozac) 10 mg PO DAILY [facility] Last Admin: 07/05/18 09:17 Dose: 10 mg Lorazepam (Ativan) 1 mg PO Q6H PRN PRN Reason: Anxiety/Agitation Last Admin: 07/05/18 16:56 Dose: 1 mg Miscellaneous Medication (Pharmacy To Dose) 1 each IVPB DAILYPRN PRN PRN Reason: LABS Ondansetron HCl (Zofran) 4 mg IVP Q6H PRN PRN Reason: Nausea/Vomiting Last Admin: 07/05/18 16:56 Dose: 4 mg Sodium Chloride (Flush - Normal Saline) 10 ml IVF Q12H PRN PRN Reason: Saline Flush Last Admin: 07/02/18 21:06 Dose: 10 ml Sodium Chloride (Flush - Normal Saline) 10 ml IVF PRN PRN PRN Reason: Saline Flush Thiamine HCl (Thiamine Hcl) 100 mg SLOW IVP Q24HR [facility] Last Admin: 07/05/18 09:18 Dose: 100 mg Trazodone HCl (Desyrel) 150 mg PO HS [facility] Last Admin: 07/04/18 20:12 Dose: 150 mg Vitamin B Complex/Vit C/Folic Acid (Nephro-Scottie Tablet) 1 tab PO DAILY [facility] Last Admin: 07/05/18 09:17 Dose: 1 tab
--- NOTE | 2018-07-05 19:30 | PRG ---
DATE OF SERVICE: 07/05/2018 SUBJECTIVE: Patient was seen and examined at bedside and overnight events noted. Patient denies any shortness of breath or chest pain or palpitation. No history of nausea or vomiting or diarrhea or f ever or chills or cramps. OBJECTIVE: GENERAL: This is a thin built female, in no apparent distress. VITAL SIGNS: Temperature 98.2, pulse 90, respiratory rate 18, blood pressure 121/77. HEENT: Atraumatic, normocephalic. Oral mucosa is moist. NECK: Supple. CARDIOVASCULAR: S1, S2 heard. Rate and rhythm regular. RESPIRATORY: Clear to auscultation. GASTROINTESTINAL: Abdomen is soft. MUSCULOSKELETAL: No tenderness. No edema. DERMATOLOGIC: No skin rash. NEUROLOGIC: Alert and awake and oriented x3. No focal neurologic deficits. Moving all the extremit ies. PSYCHIATRIC: Mood and affect normal. LABORATORY DATA: Potassium is 3.9, BUN is 6, creatinine is 0.6, sodium is 135. ASSESSMENT AND PLAN: 1. Hyponatremia, back to baseline. 2. Nausea and vomiting, better. 3. Metabolic acidosis. 4. Hypokalemia, replaced. 5. Monitor electrolytes. I will sign off. Please call back with any questions.
[2018-07-05] MEDS: traZODone HCl 50 MG TAB PO SCH (21:46)
[2018-07-06] MEDS: Famotidine/PF 20 mg/2ml Vial SLOW IVP SCH ×2 (08:27→20:39)
[2018-07-06] MEDS: Thiamine HCl 200 MG/2 ML VIAL SLOW IVP SCH (08:27)
[2018-07-06] MEDS: Folic Acid/Vit B Comp W-C PO SCH (08:27)
[2018-07-06] MEDS: FLUoxetine HCl 10 MG CAP PO SCH (08:28)
[2018-07-06] MEDS ORDERED: SUMAtriptan Succinate 50 MG TAB PO PRN (17:13)
[2018-07-06] MEDS ORDERED: Ibuprofen 200 MG TAB PO PRN (17:14)
[2018-07-06] MEDS ORDERED: traMADol HCl 50 MG TAB PO PRN (17:14)
[2018-07-06 19:29] VITALS: TEMP 98.3
[2018-07-06] MEDS ORDERED: traZODone HCl 50 MG TAB PO SCH (21:00)
--- NOTE | 2018-07-06 22:48 | PDOC.PN ---
- Objective Vital Signs & Weight: Vital Signs (12 hours) Temp Pulse Resp BP Pulse Ox 07/06/18 19:27 98.3 F 75 18 106/70 100 Weight Admit Weight 143 lb Weight 143 lb I&O: 07/05/18 07/06/18 07/07/18 06:59 06:59 06:59 Intake Total 1500 2180 2220 Balance 1500 2180 2220 Result Diagrams: 07/04/18 07:59 07/05/18 05:01 Dx/Plan - Plan * .
[2018-07-07 08:02] VITALS: BP 102/69
[2018-07-07] MEDS: Famotidine/PF 20 mg/2ml Vial SLOW IVP SCH (08:19)
[2018-07-07] MEDS: Folic Acid/Vit B Comp W-C PO SCH (08:19)
[2018-07-07] MEDS: FLUoxetine HCl 10 MG CAP PO SCH (08:19)
[2018-07-07] MEDS: Thiamine HCl 200 MG/2 ML VIAL SLOW IVP SCH (08:20)
== END 2018-07-07 17:59 | disposition home or self-care (01) | DRG 918 ==
LOC: ERS 04:47 → ERHOLD 06:12 → IMCU/EMU 12:57 → T4-A 07-02 10:38
PROVIDERS: ADMIT Internal Medicine; ATTEND Internal Medicine
DX: T50.6X1A Poisoning by antidotes and chelating agents, accidental (unintentional), initial encounter (principal); I42.6 Alcoholic cardiomyopathy; E87.1 Hypo-osmolality and hyponatremia; E87.2 Acidosis; M62.82 Rhabdomyolysis; K70.10 Alcoholic hepatitis without ascites; T51.0X1A Toxic effect of ethanol, accidental (unintentional), initial encounter; R11.2 Nausea with vomiting, unspecified; F10.129 Alcohol abuse with intoxication, unspecified; Y92.009 Unspecified place in unspecified non-institutional (private) residence as the place of occurrence of the external cause; Z98.84 Bariatric surgery status; E87.6 Hypokalemia
CPT/HCPCS: 36415; 36416; 71045; 76705; 80048; 80053; 80076; 80306; 80307; 81003; 82330; 82436; 82550; 82553; 82803; 83605; 83690; 83735; 83880; 84100; 84133; 84300; 84484; 84703; 85025; 85610; 85730; 93005; 96361; 96365; 96374; 96375; 96376; J2060; J2405; J2543; J3411; J3480; J7050; S0028